=== PATIENT | female | born 1955 | race Caucasian/White ===

== ENCOUNTER → 2021-03-08 14:55 | Outpatient (CLI) | payer OTHER, SELFPAY ==
[2021-03-08 17:46] LABS: COVID19 -Nasal RAPID Negative (Negative)
== END ==
PROVIDERS: Referring Provider Orthopaedic Surgery Orthopaedic Surgery of the Spine; Visit Provider Orthopaedic Surgery Orthopaedic Surgery of the Spine
DX: Z20.822 Contact with and (suspected) exposure to COVID-19 (principal)
CPT/HCPCS: 87635; C9803

== ENCOUNTER 2021-03-10 07:42 | Day surgery (SDC) | payer OTHER, MEDICAID, SELFPAY ==
[2021-03-03 09:46] VITALS: BMI 25.0
[2021-03-10] VITALS (12 sets, daily range): BP systolic 132–170; BP diastolic 75–97; PULSE 68–107; RESP 12–93; TEMP 36.1–36.9; O2SAT 12–99; BMI 25.0
--- NOTE | 2021-03-10 | DI.RAD.S_ITS ---
PROCEDURE: XR CERVICAL SPINE 2V OR 3V INDICATIONS: C3-4 ACDF TECHNIQUE: AP and lateral fluoroscopic view(s) of the cervical spine were acquired. COMPARISON: None. FINDINGS: AP and lateral intraoperative fluoroscopic images of the cervical spine were acquired demonstrating surgical changes of anterior cervical discectomy and fusion at C3-4. Alignment appears anatomic. No evidence for acute hardware complication. IMPRESSION: Intraoperative fluoroscopic support for anterior cervical discectomy and fusion at C3-4. Please refer to procedural note for further details. Dictated by: Mayank Diana M.D. on 03/10/2021 at 12:40 Approved by: Mayank Diana M.D. on 03/10/2021 at 12:41
[2021-03-10] MEDS: LACTATED RINGERS 1,000 ML 42 ML IV ×2 (08:19→11:50)
[2021-03-10] MEDS: ACETAMINOPHEN 325 MG TABLET 650 MG PO (08:22)
--- NOTE | 2021-03-10 08:32 | SUR.PREOP ---
it pre-op pt. had a rash on chest after chlorhexidine wash. ice pack applied. pt. alert and oriented and stable . ready for surgery.
--- NOTE | 2021-03-10 08:48 | P.HP_ITS ---
History of Present Illness History of Present Illness Date Patient Seen: 03/10/21 Time Patient Seen: 08:48 Date of Onset of Symptoms: 09/21/20 Chief complaint: arm weakness, numbness Narrative: Ms. Kim is here for progressive weakness in her arms and near constant numbness in both hands and arms. She has been having progressive difficulty walking, standing and using her arms and hands. After discussing risks and benefits of surgery, patient is progressed with worsening neurological status. Patient History Medical History (Updated 03/03/21 @ 10:17 by Zenaida Cole RN) Anxiety Bilateral cataracts Easy bruisability Heartburn Hives HTN (hypertension) Numbness and tingling in both hands Spinal stenosis of cervical region Spondylosis of cervical spine with myelopathy Surgical History (Updated 03/03/21 @ 10:17 by Zenaida Cole RN) History of bladder surgery History of lumbar fusion History of surgery on arm Hx of appendectomy S/P foot surgery, left Family & Social History Social History: household members significant other Prior Living Arrangements House Safety & Behavioral: Feels Safe in Current Yes Environment Been Physically Hurt or No Threatened By a Person Suicidal Ideation Description None Suicide Plan Description No Plan Tobacco & Substance use: Smoking Status Former smoker alcohol intake current alcohol intake frequency 0-2 drinks per day Substance Use Type does not use Meds Home Medications and Allergies Home Medications Medication Instructions Recorded Confirmed Type alprazolam 0.5 mg tablet (Xanax) 0.5 mg PO BID PRN 03/03/21 03/10/21 History estradiol 0.5 mg tablet 0.25 mg PO Q OTHER DAY 03/03/21 03/10/21 History fexofenadine 180 mg tablet 180 mg PO DAILY 03/03/21 03/10/21 History (Aller-Fex) fluoxetine 20 mg capsule 40 mg PO DAILY 03/03/21 03/10/21 History losartan 25 mg tablet 12.5 mg PO QAM 03/03/21 03/10/21 History Allergies Allergy/AdvReac Type Severity Reaction Status Date / Time adhesive tape Allergy Intermediate Burn like Verified 03/03/21 10:10 reaction on skin oxycodone [From Percocet] AdvReac Severe Nausea Verified 03/03/21 10:10 Exam Vital Signs (past 8 hours): - 03/10/21 08:01 Temperature 97.9 F Pulse Rate 83 Respiratory Rate 16 Blood Pressure 132/84 Pulse Oximetry 98 Oxygen Delivery Method Room Air Neuro Other: +Clemens's bilateral UE, 3+ DTR bilateral biceps/triceps, bilateral arm weakness in deltoid. Assessment & Plan Assessment & Plan narrative: Ms. iKm is here for urgent surgical treatment of progressive myelopathy due to severe C3-4, C4-5 spinal stenosis and spinal cord compression. RIsks for surgery was discussed, which includes but not limited to bleeding, inf ection, blood vessel/esophagus/spinal cord injury, paralysis, need for additional procedure, even . Pt understands and would like to proceed with surgery. Patient has progressive neurologic deficit with myelopathy with high risk of becoming quadriplegic if surgery is postponed. Patient has severe limitation to activity of daily living which will compromise patient's general health if surgery is postponed. Non-surgical treatment is not reasonable and not appropriate per current standard of care. Patient is scheduled for C3-4, C4-5 ACDF on urgent basis and proceed as planned. Time Spent With Patient Critical Care time: I spent a total of [] minutes of critical care time on this patient's care today; this time is exclusive of procedural time.
[2021-03-10] MEDS: CEFAZOLIN 2 GM/20 ML SYRINGE IV (09:50)
--- NOTE | 2021-03-10 10:23 | SUR.OPER ---
Supine, head on gel donut. Arms padded with gel pads, tucked at sides, towel roll under shoulders. Safety belt at thigh. Legs uncrossed.
[2021-03-10] MEDS: BUPIVACAINE 0.25% (PF) 30 ML, EPINEPHrine 0.15 MG INJ (10:31)
--- NOTE | 2021-03-10 12:00 | PM.OP.1 ---
Operative Date/Time/Diagnoses Date of procedure: 03/10/21 Time of procedure: 09:30 Pre-op diagnosis: 1. C3-4 spondylosis with myelopathy 2. C3-4 spinal stenosis with myelopathy Post-op diagnosis: same Procedure & Clinicians Procedure: 1. C3-4 anterior cervical discectomy and fusion 2. C3-4 anterior interbody cage placement. 3. C3-4 anterior instrumentation with plate and screw placement 4. Utilization of microsurgical technique and operating microscope Same procedure as scheduled: Yes Indications: Patient has been having chronic neck pain and worsening cervical myelopathy. Patient failed multiple conservative management with worsening pain weakness and numbness in her upper extremity due to her progressive myelopathy. Patient has been having difficulty performing activity of daily living. After discussing risks benefits of treatment options, patient elected proceed with surgery on urgent basis. Surgeon: Lisa Weston Vascular Neurologist: Samra Villa Click Yes if Unassisted: No Anesthesia Type: General Operative Notes Closure Type: primary Specimen(s): none sent Prosthetic devices, grafts, tissues, transplants, or devices: Globus extend plate, PEEK cage Estimated Blood Loss (mL): 10 Blood products transfused: none Procedure in detail: Patient was seen in the preoperative area. Risks and benefits of the surgery was discussed with the patient. Informed consent was obtained from the patient and placed in the chart. Surgical site was marked. Patient was taken to the operative room. General anesthesia was administered. Prophylactic antibiotic was given to the patient less than 30 min before the incision was made. Patient was placed into a supine position on a radiolucent table. Patient's shoulders were taped down to allow proper C-arm imaging. Anterior cervical area was prepped and draped in a sterile fashion. Time-out was performed at this time. Using lateral C-arm imaging, the level between C3 and C4 was identified and marked on patient's neck. A oblique incision from midline towards medial border of sternocleidomastoid muscle was made. The platysma muscle was incised in line with skin incision. Metzenbaum scissor was used to develop the plane between the medial border of sternocleidomastoid and the strap muscles medially. The carotid sheath and its contents were identified and protected behind the hand-held retractor during the entire case. The plane between the carotid sheath and strap muscles was developed with Metzenbaum scissors. Dissection was made down to the level of the anterior cervical fascia. Longus colli muscle was incised on the anterior aspect of vertebral bodies bilaterally from C3-4. Spinal needle was placed into the C3-4 disc space and confirmed with lateral C-arm imaging. Using microsurgical technique and operative microscope, anterior cervical diskectomy was performed at C3-4 level. This was done by removing the disc material, removing the anterior and posterior osteophytes posterior longitudinal ligaments along with performing bilateral foraminotomies at the C3-4 levels. Patient was found to have severe foraminal stenosis and central stenosis. Patient was found have severe spinal cord compression due to bone spur disc fragment and hypertrophied ligament. Patient's stenosis was fully decompressed after decompression was completed. After the diskectomy was completed, an anterior interbody cage was obtained. The cage was packed with globus DBM bone grafting material. One cage each along with the bone grafting material was then packed into the interbody space at C3-4. Decision at this time was to perform a single-level decompression and fusion surgery due to significant improvement from neuro monitoring with improved motor evoked potential on monitoring signal. Cervical plate was stabilized to the C3-4 vertebrae using screws. After confirming placement of the hardware with AP and lateral C-arm imaging, the screws were locked into the plate using the locking mechanism and torque limiting screwdriver. After the hardware was placed and confirmed with AP and lateral C-arm imaging, the wound was irrigated with sterile normal saline. The platysma muscle and the subcutaneous tissue was closed with 2-0 Vicryl. The skin was closed with 4-0 Monocryl and Steri-Strips. Patient tolerated the procedure well. Patient was transferred recovery room in stable condition. There were no complications. Complications: none Post-operative Condition: stable Disposition: PACU Plan for aftercare: Discharge home
[2021-03-10] MEDS: BACITRACIN OINT 0.9 GM PCKT 1 APPLIC TOP (12:01)
[2021-03-10] MEDS: fentaNYL 100 MCG/2 ML INJ IV (12:23)
[2021-03-10] MEDS: hydrOXYzine 50 MG/ML INJ 25 MG IM (12:28)
--- NOTE | 2021-03-10 12:44 | SUR.PHASEI ---
Received to PACU after general anesthesia. Airway patent, self maintained. Report from Dr Mayfield and MARYBEL Hester.
[2021-03-10] MEDS: methocarbamoL 500 MG TABLET 750 MG PO (12:52)
[2021-03-10] MEDS: TRAMADOL 50 MG TABLET PO (12:53)
--- NOTE | 2021-03-10 12:53 | SUR.PHASEI ---
Bacitracin with Allevyn dressing applied to left upper chest skin tear.
[2021-03-10] MEDS: HYDROMORPHONE 2 MG INJ IV (12:57)
--- NOTE | 2021-03-10 14:36 | SUR.PHASEII ---
Denise RN and Yakov RN provided teaching related to skin care and covering for skin tear. RN called family and updated on dressing management. Patient provided with additional dressing. Pt aware to keep CDI.
== END 2021-03-10 14:20 | disposition home or self-care (01) ==
PROVIDERS: PCP Physician Assistant; Referring Provider Orthopaedic Surgery Orthopaedic Surgery of the Spine; Visit Provider Orthopaedic Surgery Orthopaedic Surgery of the Spine
PROC: (CPT 22551; principal; 2021-03-10 08:45)
DX: M47.12 Other spondylosis with myelopathy, cervical region (principal); M48.02 Spinal stenosis, cervical region; F41.9 Anxiety disorder, unspecified; I10 Essential (primary) hypertension
CPT/HCPCS: 22551; 22853; 72040; 76000; C1713; J0171; J0690; J1100; J1170; J1200; J2250; J2405; J3010; J3410